=== PATIENT | male | born 1970 | race Caucasian/White ===

== ENCOUNTER 2023-10-16 07:39 | Inpatient (IN) | payer BC, SELFPAY ==
[2023-10-15] VITALS (13 sets, daily range): BP systolic 115–156; BP diastolic 73–92; BMI 37.1; BMI 36.5
[2023-10-15 13:43] LABS: ALT (SGPT) 43 U/L (0-50); AST (SGOT) 28 U/L (17-59); Albumin 4.1 g/dl (3.5-5.0); Alkaline Phosphatase 48 U/L (38-126); Blood Urea Nitrogen 21 mg/dl (9-20); Calcium 9.6 mg/dl (8.4-10.2); Carbon Dioxide 26 mmol/L (22-30); Chloride 106 mmol/L (98-107); Glucose 100 mg/dl (70-99); Potassium 4.3 mmol/L (3.5-5.1); Sodium 139 mmol/L (135-145); Total Bilirubin 0.5 mg/dl (0.2-1.3); eGFR > 60.00
--- NOTE | 2023-10-15 14:02 | ED.GENMED ---
History of Present Illness
General
Chief Complaint: Heart Rate Problem
Source: patient and spouse
Exam Limitations: none
Time Seen by Provider: 10/15/23 14:01
Nursing documentation reviewed up to this point in time: agreed with
Travel History
Have you had any contact with someone who has COVID-19?: No
Do you have any symptoms of coronavirus? Fever > 100 degrees, chills, cough, shortness of breath, sore throat, loss of taste or smell, muscle aches, or headache?: No
History of Present Illness
History of Present Illness:
53-year-old male presents emergency department rapid heart rate. He is asymptomatic. He went to his primary care for physical and was noted to have rapid heart rate, had an EKG that showed rapid atrial fibrillation. He was sent to the emergency
department. Recently he was treated for possible Lyme disease for a tick bite. He took a 2-week course of doxycycline.
Past History
Past History
ED Past Medical History: HTN and Psychiatric (anxiety)
ED Past Surgical History: None
Social History
Tobacco: Non-smoker
Alcohol: Occasional
Drug: None
Personal:
Living: with family
Employment: Employed
Review of Systems
Review of Systems
Allergies reviewed?: Yes
All Other Systems: Not applicable
Constitutional: Reports no symptoms; Denies fever
EENT: Reports no symptoms
Respiratory: Reports no symptoms
Cardiac: Reports no symptoms
ABD/GI: Reports no symptoms
: Reports no symptoms
Musculoskeletal: Reports no symptoms
Skin: Reports no symptoms
Neurological: Reports no symptoms
Endocrine: Reports no symptoms
Hematologic/Lymphatic: Reports no symptoms
Psychiatric: Reports no symptoms
Phy Exam
Physical Exam
Physical Exam:
Physical Exam
General: no apparent distress, not acutely ill
Neck: supple. no meningeal signs. normal posterior pharynx
Heart: s1/s2 tachycardia, irregular, no murmur. equal radial
pulses.
HEENT: Pupils equal round reactive to light, EOMI
Lungs: no acute respiratory distress. clear bilaterally
Abdomen: normal bowel sounds. not tender. no CVAT
Neuro: alert and oriented. no focal neurological deficits cranial nerves II through XII intact
Skin: no rash
Psychiatric: well kept. interactive and cooperative
Extremities: no edema. no calf tenderness. negative homans. good distal pulses
Scores
[id number] Score for Afib Stroke Risk
Age in Years (65=0, 65-74=1, >/=75=2): <65
Sex (Female=+1): Male
Congestive Heart Failure History (Yes=+1): No
Hypertension History (Yes=+1): Yes
Stroke/TIA/Thromboembolism History (Yes=+2): No
Vascular Disease History (Yes=+1): No
Diabetes Mellitus (Yes=+1): No
Score: 1
Anticoagulation Recommendations: Consider anticoagulation (as validated in nonvalvular fib)
Course
Orders/Labs/Results
Orders:
Orders
10/15/23 13:13
Electrocardiogram (*1) Urgent
Reason for Study: Atrial Fibrillation
10/15/23 13:14
EKG- Treatment ONCE
10/15/23 13:19
Complete Blood Count/With Diff Urgent
Comprehensive Metabolic Panel Urgent
Lyme Progressive Urgent
Comment: ADD ON
TSH Reflex To Free T4 Urgent
10/15/23 14:14
Add On- LAB Urgent
Tests Added?: lyme progressive
10/15/23 14:20
Diltiazem HCl [Cardizem] 10 mg IV NOW STA
10/15/23 14:30
Diltiazem 125 mg/125 ml Nss [Cardizem] 125 mg in 125 ml IV PER PROTOCOL
Initial dose in mg/hr, then titrate:: 10
Titrate to keep:: Heart rate 80-100 bpm
Titrate by mg/hr:: 5 mg/hr
Frequency of titrations (minutes):: 15
Maximum dose in mg/hr:: 15
10/15/23 Dinner
Regular
At Your Request: Full Participation
10/15/23 16:30
Admit/Transfer Patient As Directed
Co-Sign Provider:
Level of Care: Observation services
Assign to:: IVU
Physician / Group: jose
Diagnosis: new onset afib rvr
Code Status As Directed
Resuscitation Status: Full Code
10/15/23 16:37
CR Chest - 2 Views Urgent
Comment:
Reason For Exam: afib rvr
10/15/23 16:59
Pulse Ox/nocturnal-trend w prt [RESP] Routine
Quantity: 1
Desired Oxygen Setting: RA
10/15/23 18:30
Echo 2D MMode Color/Doppler Routine
Reason for Study: new afib
CARDIOLOGY CONSULT Routine
Consulting Provider: Minh Carbajal
Was physician already notified: Yes
Activity As Directed
Activity Level: As Tolerated
Vital Signs As Directed
Frequency: Per unit guidelines
DX Deep Vein Thrombosis Video Routine
10/15/23 20:00
Doxycycline [Vibramycin] 100 mg PO BID
10/16/23 06:00
Echo Sergey W/echo Doppler (#17) IN AM
Reason for Study: SERGEY guided CV for Afib
Cardiology Consult: Justus Bowden
Electrocardiogram (*1) IN AM
Reason for Study: Atrial Fibrillation
Cardiology Consult: Justus Bowden
Complete Blood Count/With Diff IN AM
Comprehensive Metabolic Panel IN AM
10/16/23 08:00
Lisinopril [Zestril] 10 mg PO DAILY
10/18/23 11:00
DC Protocol for Telemetry ONCE
Abnormal Lab Results
10/15/23
13:19
MCH 33.6 H pg
(27.0-31.0)
MCHC 37.5 H g/dL
(33.0-37.0)
RDW 11.2 L %
(11.5-14.5)
Absolute Monos (auto) 0.7 H 10^3/uL
(0.1-0.6)
Monocytes % 9.7 H %
(1.7-9.3)
BUN 21 H mg/dl
(9-20)
Glucose 100 H mg/dl
(70-99)
10/15/23 13:19
10/15/23 13:19
Vital Signs
Initial and Last Documented VS:
Initial Vital Signs
Temp Pulse Resp BP Pulse Ox
98.3 F 74 18 156/85 98
10/15/23 12:49 10/15/23 12:49 10/15/23 12:49 10/15/23 12:49 10/15/23 12:49
Last Documented Vital Signs
Temp Pulse Resp BP Pulse Ox
98.3 F 54 28 119/78 96
10/15/23 12:49 10/15/23 18:47 10/15/23 18:25 10/15/23 18:42 10/15/23 18:25
MDM/Problems Addressed
Differential Diagnosis Includes:
SVT, atrial fibrillation
MDM/Problems Addressed:
53-year-old male with rapid atrial fibrillation, new onset. Diltiazem drip. Admit to hospitalist.
Chronic conditions affecting care: HTN
Acute Exacerbation and/or Progression of Chronic Illness: HTN
*Radiology
Radiology exam reviewed: radiology read reviewed (Chest x-ray no acute findings)
*Pulse Oximetry
Patient hypoxic: no
*EKG
Interpreted by ED Provider?: Yes
EKG Intrepretation Date: 10/15/23
EKG Intrepretation Time: 13:23
Interpretation: abnormal
Comparison EKG: no comparison EKG present
Heart Rate: 120
Rate: tachycardiac
Rhythm: a-fib
[place]: normal axis
Interval: normal interval
QRS Pattern: normal QRS
Ischemia: no ischemia
*Hospital Educator Interpretation
Rate: tachycardiac
Interpretation: abnormal
Heart Rate: 140
Rhythm: a-fib
*Critical Care Note
Total Time (30-74mins, 75-104mins- exclusive of procedures): 30
comment:
Critical care statement: A total of 30 minutes of critical care time was provided for this patient. This includes management of unstable vital signs, evaluation of the patient at bedside, reviewing the patient's pertinent medical records, discussion
with consultants, review of old EKGs and review of pertinent medical records. This time with separate from time utilized to perform the aforementioned documented procedures
Patient Management
Social determinants of health affecting care: Living situation
Discussion with other providers: Hospitalist
Escalation/DeEscalation of care consider admission/obs:
Admit indicated
ED Attending Note
-
Portions of this chart may have been created with voice recognition software.� Occasional wrong word or��sound alike� substitutions may have occurred due to the inherent limitations of voice recognition software.
Discharge Plan
Departure
Patient Disposition: Admit
Date of Disposition: 10/15/23
Time of Disposition: 16:17
Admit to: IVU
Presentation/result/management discussed w/ accepting MD/DO: Hospitalist
Condition: Fair
Discharge Problem:
Atrial fibrillation with rapid ventricular response
Interventions
Interventions:
*Risk Screen - Suicide Last Done: 10/15/23 13:08
*General Assessment Last Done: 10/15/23 13:08
*Neglect/Abuse Screening Last Done: 10/15/23 12:49
ED- Fall Risk Assessment Last Done: 10/15/23 14:08
*ED COVID-19 Vaccine History Last Done: 10/15/23 14:07
*Nursing Disposition Last Done: 10/15/23 18:36
ED- Cardiac Assessment Last Done: 10/15/23 14:09
ED- Pulmonary Assessment Last Done: 10/15/23 14:08
Discharge Date and Time
Discharge Date/Time: 10/15/23 18:39
[2023-10-15 14:13] LABS: TSH Reflex To Free T4 1.53 uIU/ml (0.47-4.68)
[2023-10-15 14:25] LABS: % Basophils 0.6 % (0-2); % Eosinophils 2.4 % (0-6); % Immature Granulocytes 0.3 % (0-0.5); % Lymphocytes 33.4 % (20.5-51.1); % Monocytes 9.7 % (1.7-9.3); % Neutrophils 53.6 % (42.2-75.2); Absolute Eosinophils 0.2 10^3/uL (0-0.7); Absolute Lymphocytes 2.4 10^3/uL (1.2-3.4); Absolute Monocytes 0.7 10^3/uL (0.1-0.6); Absolute Neutrophils 3.9 10^3/uL (1.4-6.5); Hematocrit 43.7 % (39.0-52.0); Hemoglobin 16.4 g/dL (13.0-18.0); Mean Corp Hgb Conc. 37.5 g/dL (33.0-37.0); Mean Corpuscular Hgb 33.6 pg (27.0-31.0); Mean Corpuscular Volume 89.5 fL (80.0-94.0); Mean Platelet Volume 9.6 fL (7.4-10.4); Nucleated Red Blood Cells % 0 % (-); Platelet Count 227 10^3/uL (130-400); Red Blood Cell Count 4.88 10^6/uL (4.70-6.10); Red Cell Dist. Width 11.2 % (11.5-14.5); White Blood Cell Count 7.2 10^3/uL (4.8-10.8)
[2023-10-15] MEDS: CARDIZEM 10 MG IV (14:37)
[2023-10-15] MEDS: CARDIZEM 125 IV (14:40)
--- NOTE | 2023-10-15 16:28 | CON.CAR ---
Consultation
Consultation Request
Date/Time Consultation Requested: 10/15/23
Date/Time Consultation Performed: 10/15/23
Requesting Provider: Dr. Guevara in the ER
Performing Provider: Dr. Bowden
Reason for Consultation: Newly diagnosed Afib of unclear duration
Medical History
-
History of Present Illness:
Patient came to [facility] from his PCP's office with new Afib and cardiology is being consulted. Patient was at his PCP's office today for a routine physical and on check of VS was noted to be tachycardic in the 140s. No previous tachycardia and no
palpitations. ECG at PCP's office showed Afib and patient was referred to ER. In [facility] ECG again showed Afib with RVR and patient started on Cardizem gtt. Patient was seen in PCP's office 09/30/23 for a tick bite and after talking with PCP opted to
complete 2 weeks of doxycycline prophylactically. Patient has a h/o HTN and takes lisinopril 10 mg daily. Patient with h/o hyperglycemia, but had a normal HgbA1c of 5.4% on 10/09/23.
PMH:
HTN
Prophylactic doxycycline for tick bite starting 09/30/23
Hyperglycemia with normal HgbA1c 10/09/23
Past Medical History
Past Medical History: Other (in HPI)
Past Surgical History: Other (cyst removal left elbow)
Social History
Tobacco: Other (chewed tobacco for )
Alcohol: Occasional
Drug: None
Personal:
Living: With Family
Employment: Employed
Family History
Family History: Diabetes, Hypertension and Other (sister with seizures, other sister breast cancer)
Allergies / Home Medications
Allergy/AdvReac Type Severity Reaction Status Date / Time
No Known Allergies Allergy Verified 10/15/23 12:59
Review of Systems
-
History Source: Patient
All other systems: Negative unless noted
Physical Exam
Vital Signs
Temp Pulse Resp BP Pulse Ox
98.3 F 120 14 130/87 95
10/15/23 12:49 10/15/23 14:37 10/15/23 14:10 10/15/23 14:37 10/15/23 14:10
Lab Results
10/15/23 13:19
10/15/23 13:19
Impression / Plan
-
PCP: Candida PERINATAL COORDINATOR, [facility] [place]
Cardiology: None prior to admission
Impression:
Newly diagnosed Afib with RVR of unclear duration
HTN
Prophylactic doxycycline for tick bite starting 09/30/23
Hyperglycemia with normal HgbA1c 10/09/23
Plan:
-Patient came to [facility] from his PCP's office with new Afib and cardiology is being consulted. Patient was at his PCP's office today for a routine physical and on check of VS was noted to be tachycardic in the 140s. No previous tachycardia and no
palpitations. ECG at PCP's office showed Afib and patient was referred to ER. In [facility] ECG again showed Afib with RVR and patient started on Cardizem gtt. Patient was seen in PCP's office 09/30/23 for a tick bite and after talking with PCP opted to
complete 2 weeks of doxycycline prophylactically. Patient has a h/o HTN and takes lisinopril 10 mg daily. Patient with h/o hyperglycemia, but had a normal HgbA1c of 5.4% on 10/09/23.
-ECG reviewed by me and shows Afib in RVR.
-Afib is a new diagnosis. Agree with Cardizem gtt overnight.
-Plan on ROB/CV in AM if patient fails to convert overnight. TT to medical lab tech instructor charge nurse to add to schedule for Thursday.
-Start Eliquis 5 mg BID now and then BID. CHADS Vasc score is 1
-Check nocturnal pulse ox overnight.
-Hyperglycemia, but had a normal HgbA1c of 5.4% on 10/09/23.
-Talked with patient about short-term plan of Cardizem gtt and then ROB/CV. Also discussed long-term options of AAD or ablation.
--- NOTE | 2023-10-15 16:34 | HPS.HSE ---
Addendum entered and electronically signed by Donn Bowden DO 10/15/23 17:29:
I saw and examined the patient.
The [employer]'s note was reviewed and I agree with the note.
Comment:
GENERAL: no acute distress
EYE: sclera anicteric
NECK: Supple, no JVD, no carotid bruit appreciated
ENT: normal nose, moist mucosal membranes
CARDIAC: irregularly irregular, +S1/S2, no murmur, rubs, or gallops
CHEST/PULMONARY: Normal effort, clear breath sounds
ABDOMEN: Soft, without focal tenderness or distention
NEUROLOGICAL: Alert and oriented x3
SKIN: Warm and dry, no rash
PSYCH: Normal and appropriate interaction.
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
A/P as below
Paroxysmal AF, mildly symptomatic; currently rate controlled on diltiazem
Start Eliquis 5 mg twice daily
ROB/DCCV in AM, NPO after midnight
Continue diltiazem for rate control, transition to oral CCB or BB when SR
Overnight pulse ox for BRYAN assessment -- noted snoring/apnea reported by
Original Note:
Family Physician
-
Family Physician: KARSTEN Valle
Chief Complaint
-
elevated heart rate
History of Present Illness
53-year-old male past medical history of hypertension, anxiety, presenting with rapid heart rate. Went to see his primary care physician for routine physical and denies any symptoms. He had EKG which showed atrial fibrillation with RVR and was
sent to the emergency room. He denies any chest pain, shortness of breath, dizziness, swelling.
He was found to have 2 ticks on him 2 weeks ago after being present on him for 2 days with some redness at the site was started on doxycycline to empirically treat Lyme disease. He denies any joint pains or fatigue or fevers or chills. Today is
his last day of doxycycline.
He does drink 2-3 drinks of alcohol 2 times a week. Denies smoking. Denies any drugs.
Denies any family history of heart disease.
Medical History
Past Medical History
Past Medical History: Reports Other (hypertension, anxiety,)
Past Surgical History: Reports None
Social History
Tobacco: Non-smoker
Alcohol: Occasional
Drug: None
Family History
Family History: Not pertinent
Allergies / Home Medications
Allergies reflects when Allergies were last updated in [facility].
Home Medications with original date entered in [facility]
Allergy/Medication List:
Allergies
Allergy/AdvReac Type Severity Reaction Status Date / Time
No Known Allergies Allergy Verified 10/15/23 12:59
Home Medications
doxycycline hyclate 100 mg capsule 100 mg PO BID 10/15/23
lisinopril 10 mg tablet 10 mg PO DAILY 10/15/23
Review of Systems
-
History Source: Patient
A 12 point ROS was completed and negative except as noted: Yes
Constitutional: Reports No Symptoms
EENT: Reports No Symptoms
Respiratory: Reports No Symptoms
Cardiac: Reports No Symptoms
Abdomen/GI: Reports No Symptoms
: Reports No Symptoms
Musculoskeletal: Reports No Symptoms
Skin: Reports No Symptoms
Neurological: Reports No Symptoms
Endocrine: Reports No Symptoms
Hematologic/Lymphatic: Reports No Symptoms
Psych: Reports No Symptoms
Physical Exam
Vital Signs
Vital Signs
Temp Pulse Resp BP Pulse Ox
98.3 F 120 14 130/87 95
10/15/23 12:49 10/15/23 14:37 10/15/23 14:10 10/15/23 14:37 10/15/23 14:10
Physical Exam
General: Well Developed, Well Nourished and No Apparent Distress
HEENT: NormoCephalic, Moist mucous membranes and Atraumatic
Respiratory: Clear
Cardiac: S1/S2 and Regular Rhythm; No Murmur or Rub
GI: Soft, Non Tender, Non Distended and Normal Bowel Sounds; No Organomegaly
Rectal: Deferred by Provider
Musculoskeletal: No Clubbing, No Cyanosis and No Edema
Skin: No Rash
Neuro: Nonfocal/grossly intact
Laboratory Results
-
10/15/23 13:19
10/15/23 13:19
Laboratory Results
Total Bilirubin 0.5 mg/dl (0.2-1.3) 10/15/23 13:19
AST 28 U/L (17-59) 10/15/23 13:19
ALT 43 U/L (0-50) 10/15/23 13:19
Alkaline Phosphatase 48 U/L (38-126) 10/15/23 13:19
Data Reviewed
-
Lab Data: Labs Reviewed by me
Old Records: Reviewed
Impression/Plan
-
IMPRESSION:
PLAN:
# New onset atrial fibrillation with RVR
-Cardizem drip started
-[id number] score of 1
-TSH normal
-Check echo
-Cardiology consulted
# Recent tick bites
-Today is last dose of empiric doxycycline for Lyme's disease
Essential hypertension
-Continue lisinopril
Anxiety
Full code
DVT prophylaxis�heparin
Regular diet
--- NOTE | 2023-10-15 16:56 | W.CHA2DS2VAS ---
[id number] Score
Score
Age in Years (65=0, 65-74=1, >/=75=2): <65
Sex (Female=+1): Male
Congestive Heart Failure History (Yes=+1): No
Hypertension History (Yes=+1): Yes
Stroke/TIA/Thromboembolism History (Yes=+2): No
Vascular Disease History (Yes=+1): No
Diabetes Mellitus (Yes=+1): No
Score >/=2 is otherwise an anticoagulation candidate: 1
[2023-10-15] MEDS: ELIQUIS 5 MG PO (20:37)
[2023-10-15] MEDS: VIBRAMYCIN 100 MG PO (20:37)
--- NOTE | 2023-10-16 00:33 | PTCARENOTE ---
Pt received at start of shift. Cardizem was infusing at 5mg/hr. Pt to SB/SR 50s-70. EKG confirmed SB. TT Dr. Josue, Cardizem drip turned off. Educated pt on Eliquis and purpose of anticoagulant especially in regards to afib. Pt states
understanding. Pt denies any lightheadedness/dizziness, CP, or SOB at this time, informed to notify RN if any changes, call gudino within reach.
[2023-10-16 05:12] VITALS: BP 148/78
[2023-10-16 05:43] LABS: % Basophils 0.3 % (0-2); % Eosinophils 3.3 % (0-6); % Immature Granulocytes 0.2 % (0-0.5); % Lymphocytes 31.6 % (20.5-51.1); % Neutrophils 54.6 % (42.2-75.2); Absolute Eosinophils 0.2 10^3/uL (0-0.7); Absolute Monocytes 0.6 10^3/uL (0.1-0.6); Absolute Neutrophils 3.4 10^3/uL (1.4-6.5); Hematocrit 41.3 % (39.0-52.0); Hemoglobin 15.1 g/dL (13.0-18.0); Mean Corp Hgb Conc. 36.6 g/dL (33.0-37.0); Mean Corpuscular Hgb 33.8 pg (27.0-31.0); Mean Corpuscular Volume 92.4 fL (80.0-94.0); Mean Platelet Volume 9.8 fL (7.4-10.4); Nucleated Red Blood Cells % 0 % (-); Platelet Count 186 10^3/uL (130-400); Red Blood Cell Count 4.47 10^6/uL (4.70-6.10); Red Cell Dist. Width 11.2 % (11.5-14.5); White Blood Cell Count 6.3 10^3/uL (4.8-10.8)
[2023-10-16 06:07] LABS: ALT (SGPT) 36 U/L (0-50); AST (SGOT) 26 U/L (17-59); Albumin 3.6 g/dl (3.5-5.0); Alkaline Phosphatase 47 U/L (38-126); Blood Urea Nitrogen 23 mg/dl (9-20); Calcium 9.4 mg/dl (8.4-10.2); Carbon Dioxide 28 mmol/L (22-30); Chloride 105 mmol/L (98-107); Estimated Creatinine Clearance > 125 ml/min; Glucose 105 mg/dl (70-99); Potassium 4.4 mmol/L (3.5-5.1); Sodium 139 mmol/L (135-145); Total Bilirubin 0.6 mg/dl (0.2-1.3); Total Protein 6.3 g/dl (6.3-8.2); eGFR > 60.00
--- NOTE | 2023-10-16 07:21 | W.PN.HOSP.TC ---
Today's Communication/Plan
-
discharge
Assessment / Plan
Assessment / Plan
Physical Exam
General: No pallor, cyanosis, or jaundice.
HEENT: Throat clear. PERRLA Normocephalic atraumatic
NECK: Supple. No JVD Carotid Bruits
RESPIRATORY: Lungs clear to auscultation. No crackles wheezes stridor
CVS: S1, S2 normal. RRR. No murmur, rub or gallop.
ABDOMEN: Soft, non-tender. No distension. BS+/normal.
EXTREMITIES: No peripheral cyanosis or edema.
DE ICER: AOx3. No focal deficits.
53M HTN, anxiety, p/e rapid heart rate found to be in new onset afib RVR. Initially planned to ROB/cardioversion, patient since converted to NSR with medication treatment alone.
# New onset atrial fibrillation with RVR
-TSH wnl
-ECHO appreciated EF 62% normal diastolic function
Cardiology consult appreciated
-Cardizem gtt converted to PO 120 mg daily
-Eliquis 5 mg BID
-outpatient sleep study recommended
-outpt cardio follow up.
# Recent tick bites
-Completed outpt doxycycline regimen
Essential hypertension
-Continue lisinopril
Anxiety
Full code
DVT prophylaxis�heparin
Regular diet
Medically stable for discharge home with outpatient follow up recommendations.
Discussed with patient and his aide Seth
Total Time Preparing Discharge __50 minutes including examination of the patient, summary of the hospital stay, instructions for continuing care to all relevant caregivers; and preparation of discharge records, prescriptions, and referral
forms if necessary.
Anticipated Discharge: Today
Subjective/Interval History
-
Date of Service: October 16, 2023
Seen and examined at bedside in no acute distress reports feeling well. Denies new acute issues at this time. Overall feels well. Eager to go home. Aide Seth present during evaluation.
Objective Data
-
Labs:
Laboratory Results
10/16/23
05:17
WBC 6.3
Hgb 15.1
Hct 41.3
Plt Count 186
Sodium 139
Potassium 4.4
Chloride 105
Carbon Dioxide 28
BUN 23 H
Creatinine 0.8
Glucose 105 H
Calcium 9.4
Total Bilirubin 0.6
AST 26
ALT 36
Alkaline Phosphatase 47
Vital Signs:
Vital Signs
Temp Pulse Resp BP Pulse Ox
97.9 F 58 16 148/78 95
10/16/23 05:33 10/16/23 05:30 10/16/23 05:33 10/16/23 05:12 10/16/23 05:33
I&O
10/15/23 10/16/23 10/17/23
06:59 06:59 06:59
Intake Total 480 / 480
Balance 480 / 480
[2023-10-16 07:35] VITALS: BP 146/90
--- NOTE | 2023-10-16 07:44 | W.PN.CARDCBS ---
Addendum entered and electronically signed by Wendie Josue DO 10/16/23 11:02:
I saw and examined the patient.
The Recruiting Associate's note was reviewed and I agree with the note.
Comment: Seen and examined. Ambulating in room and anxious to go home.
General: No acute distress, AAOX3
Neck: Negative JVD
Heart: Regular, Negative S3 positive S1/S2, No murmur
Lungs: CTA b/l, negative wheezes/rales/rhonchi
Abd: Positive BS, NT/ND, neg rebound/rigidity/guarding
Ext: No edema
Neuro: nonfocal
Plan:
New symptomatic atrial fibrillation of unclear duration currently in sinus rhythm
-We reviewed diagnosis, pathophysiology, potential triggers, stroke risk and prevention as well as management options
-Fortunately he converted to sinus rhythm on IV Cardizem drip which was discontinued
-Will start oral Cardizem CD 120 mg daily
-Will start Eliquis 5 mg twice daily for stroke risk reduction
-TSH within normal limit
-2D echocardiogram with normal biventricular size and systolic function and no significant valve pathology
-Probable sleep apnea; advised outpatient sleep study
-Will arrange for cardiac follow-up
Hypertension:
-Monitor with new Cardizem. Continue lisinopril. Goal normotension
Recent tick bite: Lyme's titer pending; started on prophylactic doxycycline for tick bite starting 09/30/2023
Follow-up with his primary care physician
Follow-up with cardiology being arranged
Stable for discharge home
Original Note:
Today's Communication / Plan
-
in SR
start po cardizem cd 120mg daily
eliquis 5mg BID
echo today
likely DC later today
OP cardiac follow up arranged
Impression / Plan
-
PCP: Candida KHALIL, [facility] [place]
Cardiology: None prior to admission
Impression:
Newly diagnosed Afib with RVR of unclear duration
HTN
Prophylactic doxycycline for tick bite starting 09/30/23
Hyperglycemia with normal HgbA1c 10/09/23
Concern for sleep apnea
Plan:
-he presented with new afib and fortunately converted to SR overnight.
-remains in SR this morning upon review of tele without recurrence
-stop IV cardizem gtt. start po cardizem cd 120mg daily
-check echo
-continue eliquis for now. [id number] is 1
-nocturnal pulse ox with several desat events. will need OP sleep study
-arranged OP cardiac follow up
-ok for DC pending echo
-d/w nursing
Progress Note - Hide Curer
Subjective
Date of Service: October 16, 2023
feeling well this morning. no issues overnight
Objective
Labs:
10/16/23 05:17
10/16/23 05:17
Labs
Hgb 15.1 g/dL (13.0-18.0) 10/16/23 05:17
Hct 41.3 % (39.0-52.0) 10/16/23 05:17
Plt Count 186 10^3/uL (130-400) 10/16/23 05:17
Sodium 139 mmol/L (135-145) 10/16/23 05:17
Potassium 4.4 mmol/L (3.5-5.1) 10/16/23 05:17
BUN 23 mg/dl (9-20) H 10/16/23 05:17
Creatinine 0.8 mg/dL (0.7-1.3) 10/16/23 05:17
Glucose 105 mg/dl (70-99) H 10/16/23 05:17
Vital Signs and I&O:
Vital Signs
Temp Pulse Resp BP Pulse Ox
97.9 F 59 16 148/78 96
10/16/23 07:35 10/16/23 07:35 10/16/23 07:35 10/16/23 05:12 10/16/23 07:35
Vital Signs
Temp Pulse Resp BP Pulse Ox
97.9 F 59 16 148/78 96
10/16/23 07:35 10/16/23 07:35 10/16/23 07:35 10/16/23 05:12 10/16/23 07:35
Intake & Output
10/13/23 10/14/23 10/15/23 10/16/23
07:59 07:59 07:59 07:59
Intake Total 480 / 480
Balance 480 / 480
Physical Exam
Physical Exam
GEN: No distress, awake, alert, oriented x3
HEENT: supple, anicteric, mmm, eomi
LUNGS: CTA B/L, no wheezes/rales
CV: Reg, S1/S2, no murmur
ABD: soft, BS+, NT/ND
EXT: No cyanosis, clubbing, edema
NEURO: Gross non-focal
SKIN: Warm, pink, dry. No rash
[2023-10-16] MEDS: CARDIZEM CD 120 MG PO (08:44)
[2023-10-16] MEDS: ZESTRIL 10 MG PO (08:44)
[2023-10-16] MEDS: ELIQUIS 5 MG PO (08:45)
--- NOTE | 2023-10-16 09:29 | CM ---
Priced Eliquis thru Rx plan: [phone]; estimated cost of Eliquis per month would be $86.30.
Pt. would be eligible for coupons, free 30 d and $10/month card. Will provide both.
--- NOTE | 2023-10-16 11:02 | CM ---
CM following for DC planning needs.
Met w/ patient at bedside to complete initial assessment. Sig. other also present.
Pt. informs that he resides in a private, multi level home w/ sig. other. Pt. is functionally indep. w/ ADLs, mobility without use of any assisted device.
Reviewed estimated co pay for [employer] + coupons. Pt. understands and is agreeable to copay.
Anticipated DC plan is for home, no needs.
[2023-10-16 11:13] VITALS: BP 138/95
--- NOTE | 2023-10-16 14:17 | W.DCSUMMARY ---
Discharge Summary
Discharge Data
Date of Admission: 10/16/23
Date of Discharge: 10/16/23
-
Pending Results: No
Discharge Plan
-
Patient Disposition: Home (Routine Discharge)
Discharge Diagnosis/Procedures: Atrial Fibrillation with Rapid Ventricular Rate resolved, Hypertension, Obesity, Suspected Obstructive Sleep Apnea
Condition: Good
Diet: Regular
Activity: As tolerated
Driving Restrictions: As prior to admission
Bathing Restrictions: None
Others Tests: Please follow up with primary care provider for outpatient sleep study in one month of discharge.
Activity Restrictions/Additional Instructions:
Please follow up with primary care provider in 1 week of discharge and keep your appointment with Cardiology.
Cardizem has been prescribed for atrial fibrillation- to help maintain normal sinus rhythm and prevent recurrence of arrythmia
Eliquis has been prescribed for stroke risk reduction atrial fibrillation.
Please take medications as prescribed/recommended and follow up with primary care provider and/or other healthcare provider involved in your care for refills and/or further adjustment to your medication regimen as necessary.
Instructions: Atrial Fibrillation (DC)
Referrals:
Grisel Tirado CRNP [Family Provider] - in one week
Donn Bowden DO [Active] - 11/02/23 11:20 am (You have a cardiology follow-up appointment at the [place] office. Please call with questions)
Prescriptions:
New
Eliquis 5 mg Tablet
5 mg PO BID 30 Days Qty: 60 0RF
diltiazem HCl 120 mg Capsule,Extended Release 24hr
120 mg PO DAILY 30 Days Qty: 30 0RF
Continued
lisinopril 10 mg tablet
10 mg PO DAILY
Discontinued
doxycycline hyclate 100 mg capsule
100 mg PO BID
Discharge Orders:
Discharge Patient (As Directed); Ordered 10/16/23
Ordered By: Yeni Shen
Care Plan Goals
Care Plan Goals:
Problem: Readiness for enhanced knowledge related to diagnosis and treatment plan
Goal: Understand your diagnosis and treatment plan needs, including medications if applicable.
Instructions: Know your diagnosis, underlying causes and treatment plan options, including medications if applicable. Consult with your health care team to learn about your diagnosis and treatment plan, including medications if applicable.
Discharge Date and Time
Print Language: SURINAMESE
--- NOTE | 2023-10-16 14:42 | PTCARENOTE ---
D/C instructions given to patient,verbalizes understanding. INT D/C'd,telemetry D/C'd, personal belongings packed and sent home with patient. D/C to home via wc accompanied by staff.
[2023-10-19 14:57] LABS: Lyme Antibody Screen, EIA Negative (Negative)
== END 2023-10-16 17:37 | disposition home or self-care (01) | DRG 310 ==
LOC: IVU 07:39
PROVIDERS: ADMITTING PHYSICIAN Hospitalist; ATTENDING PHYSICIAN Internal Medicine; CONSULT PHYSICIAN Nuclear Medicine Nuclear Cardiology; EMERGENCY PHYSICIAN Emergency Medicine; FAMILY PHYSICIAN Nurse Practitioner
DX: I48.0 Paroxysmal atrial fibrillation (principal); I10 Essential (primary) hypertension; E66.9 Obesity, unspecified; F41.9 Anxiety disorder, unspecified; G47.33 Obstructive sleep apnea (adult) (pediatric); Z68.36 Body mass index [BMI] 36.0-36.9, adult; Z79.01 Long term (current) use of anticoagulants
CPT/HCPCS: 71046; 80053; 84443; 85025; 86618; 93005; 93306; 94762; 96374; 99291

== ENCOUNTER → 2023-11-19 | Outpatient (REF) | payer BC, SELFPAY | LOC: DHSLP | PROVIDERS: ATTENDING PHYSICIAN Internal Medicine Cardiovascular Disease | DX: G47.33 Obstructive sleep apnea (adult) (pediatric) (principal); R09.02 Hypoxemia | CPT/HCPCS: 95800 ==

== ENCOUNTER 2024-01-15 05:58 | Day surgery (SDC) | payer BC, SELFPAY ==
[2023-12-22 12:41] VITALS: BMI 38.0
[2023-12-22 13:25] LABS: INR 1.13; PT 14.5 Sec (11.4-14.6)
[2023-12-22 13:31] LABS: ALT (SGPT) 25 U/L (0-50); AST (SGOT) 23 U/L (17-59); Albumin 4.2 g/dl (3.5-5.0); Alkaline Phosphatase 53 U/L (38-126); Blood Urea Nitrogen 17 mg/dl (9-20); Calcium 9.5 mg/dl (8.4-10.2); Carbon Dioxide 23 mmol/L (22-30); Chloride 107 mmol/L (98-107); Estimated Creatinine Clearance 121 ml/min; Glucose 95 mg/dl (70-99); Sodium 137 mmol/L (135-145); Total Bilirubin 0.6 mg/dl (0.2-1.3); Total Protein 6.7 g/dl (6.3-8.2); eGFR > 60.00
[2023-12-22 14:16] LABS: % Basophils 0.3 % (0-2); % Eosinophils 2.8 % (0-6); % Immature Granulocytes 0.2 % (0-0.5); % Lymphocytes 32.5 % (20.5-51.1); % Monocytes 8.7 % (1.7-9.3); % Neutrophils 55.5 % (42.2-75.2); Absolute Eosinophils 0.2 10^3/uL (0-0.7); Absolute Monocytes 0.5 10^3/uL (0.1-0.6); Absolute Neutrophils 3.4 10^3/uL (1.4-6.5); Hematocrit 40.2 % (39.0-52.0); Hemoglobin 15.1 g/dL (13.0-18.0); Mean Corp Hgb Conc. 37.6 g/dL (33.0-37.0); Mean Corpuscular Hgb 33.4 pg (27.0-31.0); Mean Corpuscular Volume 88.9 fL (80.0-94.0); Mean Platelet Volume 9.6 fL (7.4-10.4); Nucleated Red Blood Cells % 0 % (-); Platelet Count 200 10^3/uL (130-400); Red Blood Cell Count 4.52 10^6/uL (4.70-6.10); Red Cell Dist. Width 11.1 % (11.5-14.5); White Blood Cell Count 6.1 10^3/uL (4.8-10.8)
--- NOTE | 2023-12-28 10:51 | OID.L.PAT ---
Pulmonary Nodule Pat Letter
- -
12/28/23
SOFIA YU
[address]
[place], [place]
Dear SOFIA,
A pulmonary nodule was seen on an imaging study done by [facility]. This was reviewed by the [facility] Pulmonary Nodule Advisory Board and the following recommendation was made:
Recommendation: Follow up CT Chest in one year
If you have any questions, please do not hesitate to contact your primary care physician. If you are in need of a Physician, you can go to [email or web address] and click on 'Find a Provider'. Type 'Family Medicine' in the search.
Oncology Nurse Navigator
[facility]
[phone]
--- NOTE | 2023-12-28 10:51 | OID.L.REC ---
Pulmonary Nodule Follow Up
- Recommendation
12/28/23
Pulmonary Nodule Review Recommendations
Your patient, SOFIA YU, had a pulmonary nodule seen on an imaging study done on 12/22/23 in the [facility] Radiology Department.
This was reviewed by the [facility] Pulmonary Nodule Advisory Board and the following recommendation was made:
Recommendation: Follow up CT Chest in one year
If you have any questions please do not hesitate to contact us.
Sincerely,
Oncology Nurse Navigator
[facility]
[phone]
[2024-01-15] VITALS (13 sets, daily range): BP systolic 120–160; BP diastolic 74–94; BMI 37.4
[2024-01-15] MEDS: TYLENOL 1000 MG PO (07:35)
--- NOTE | 2024-01-15 08:03 | ITS.CL.ABL ---
Manager Mass - Ablation
Ablation
Procedure Report:
Primary Care: KARSTEN Valle
Procedure Date: 01/15/2024
Patient History:
Patient is a pleasant 53-year-old male with a past medical history significant for hypertension, sleep apnea on CPAP, and symptomatic paroxysmal atrial fibrillation.
See H&P for complete details.
Indication:
Symptomatic paroxysmal atrial fibrillation
Arrhythmia Specific History:
Prior Medical Therapies for Rate and Rhythm Control:
[ ] Beta-erick
X Calcium channel-erick
[ ] Amiodarone
[ ] Dronederone
[ ] Sotalol
[ ] Flecainide
[ ] Dofetilide
[ ] Options limited by bradycardia
[ ] Options limited by comorbid renal disease
Prior Procedural Therapies for AF/AFL:
[ ] Cardioversion
[ ] Pulmonary Vein Isolation
[ ] Posterior Wall Isolation
[ ] Additional lines (Specify)
[ ] Surgical Venegas-MAZE or PVI (Specify)
Procedure Performed:
X AF ablation procedure (01227) -- includes LA/CS pacing, trans-septal, 3D mapping, + ICE
[ ] +IV drug (01412)
[ ] +Other Arrhythmia (30519)
[ ] +Other AF Line/ablation (82543)
Risks and expected recovery has been explained in detail. Alternative options have been explored, and in a shared-decision making fashion we have decided that this was the most appropriate procedure.
Method
NPO status confirmed. Grounding pad applied. Defibrillator pads applied. Continuous surface ECG, pulse oximetry, and blood pressure were monitored. Procedure was performed under general anesthesia, with anesthesia services.
Both groins were clipped, prepped with Chloraprep, and draped in sterile fashion. Time out was called. Local anesthesia administered with bupivacaine. The right and left femoral veins were accessed for catheter placement, using ultrasound guidance,
micro-puncture needle/wire, and modified seldinger technique. 3 sheaths were placed. The following catheters were used:
[ ] Tacticath SE (D/F Curve) ablation catheter
X Viewflex 9Fr ICE catheter
X Inquiry decapolar 6Fr diagnostic catheter
[ ] CRD Hex 6Fr
[ ] Arctic Front Advance Cryoballoon ([ ]28mm[ ]23mm)
[ ] Achieve Advance mapping catheter ([ ]15mm[ ]20mm)
X FlexCath Contour 10 Fr with PulseSelect PFA Catheter
X Advisor HD Grid Mapping Catheter, SE
[ ] Acuson AcuNav 8 Fr ICE catheter
[ ]Other: [ ]
Intracardiac ultrasound (ICE) was carefully advanced into the right atrium to guide sheath placement over a J-wire, catheter placement, guide trans-septal puncture, identify potential complications, identify anatomic structures and ensure proper
contact between ablation catheter and tissue.
Heparin was given prior to trans-septal puncture. Heparin was given to achieve and maintain a target ACT of 300-400 seconds throughout the procedure.
Trans-septal access was performed under ICE guidance. The trans-septal puncture was performed with a SafeSept wire through a Brockenbrough needle assembly through the steerable sheath. The wire was visualized as it entered the LSPV and system
advanced under ICE guidance and fluoroscopy into the LA. The Brockenbrough needle assembly, SafeSept wire and sheath dilator were removed under negative pressure. LA pressure was measured and recorded.
ICE and 3D mapping was performed to identify relevant cardiac structures. A careful 3D map was created to assess for regions of low-voltage and abnormal electrogram signals using HD grid mapping catheter and PulseSelect catheter. Additional mapping
was performed as outlined below.
Prior to ablation, glycopyrrolate was provided. PulseSelect catheter was advanced over J-wire to the ostium of each vein. Pulmonary vein isolation was performed with ostial and antral lesions in a circumferential manner. Contact was visualized via
EAM, ICE, fluoroscopy, and EGM signals. Following completion of ablation lesions, a post-ablation voltage/activation map was performed in sinus rhythm. Entrance and exit block were confirmed for each vein.
Catheter and sheath were removed from the left atrium and post-ablation intracardiac echo evaluation was consistent with pre-ablation with no changes and no pericardial effusion and there is no left atrial thrombus or left ventricle thrombus seen.
Electrophysiology study was performed. Hemostasis was obtained with figure of 8 stitch for each groin and with manual pressure. Protamine was used for reversal.
Estimated Blood Loss
5 mL
Complications
None
Fluoroscopy: 4.3 minutes; 24.8 mGy; DAP 2.6
Baseline Intervals:
Rhythm: SR
NE: 135 ms
QRS: 93 ms
QT: 404 ms
Post-Procedure Intervals:
NE: 133 ms
QRS: 100 ms
QT: 401 ms
AVWB: 340 ms
AVERP: 600/280 ms
Recommendations
- Bedrest with straight-leg precautions as ordered
- Anticipate same day discharge if patient meeting clinical metrics
- Resume home medications as indicated
- Ok to resume anticoagulation tonight if patient and groin sites stable
- PPI daily for 30 days
- Plan for follow-up in office in 3 months
Donn Bowden DO
Clinical Cardiac Upper Leather Sorter
cc: KARSTEN Valle
[2024-01-15 09:04] LABS: ACT-LR - POC 353 Seconds (116-155)
[2024-01-15 09:20] LABS: ACT-LR - POC 319 Seconds (116-155)
[2024-01-15 09:45] LABS: ACT-LR - POC 360 Seconds (116-155)
[2024-01-15 10:12] LABS: ACT-LR - POC 211 Seconds (116-155)
--- NOTE | 2024-01-15 15:30 | W.PN.UPDATE ---
Update Note
Progress Note Update
Pt seen post PFA. Right groin site without ht/bleeding, non tender. OOB ambulating, urinating without difficulty. Post EKG NSR 70s, no acute changes. Resume eliquis tonight, continue diltiazem as before. 30 day course protonix post procedure
ordered. Followup at [facility] arranged. Home today if tele/groin site remain stable.
== END 2024-01-15 15:00 | disposition home or self-care (01) ==
LOC: CATH 05:58
PROVIDERS: ATTENDING PHYSICIAN Internal Medicine Cardiovascular Disease; FAMILY PHYSICIAN Nurse Practitioner
DX: I48.0 Paroxysmal atrial fibrillation (principal); I10 Essential (primary) hypertension; G47.33 Obstructive sleep apnea (adult) (pediatric); E66.9 Obesity, unspecified; Z79.01 Long term (current) use of anticoagulants; Z68.38 Body mass index [BMI] 38.0-38.9, adult; Z87.891 Personal history of nicotine dependence; R91.1 Solitary pulmonary nodule
CPT/HCPCS: C1732; C1894; C1733; C1769; C1766; 36415; 75572; 76937; 80053; 83735; 85025; 85347; 85610; 86850; 86900; 86901; 93005; 93656; Q9967